=== PATIENT | female | born 1965 | race Caucasian/White ===

== ENCOUNTER 2018-02-18 23:33 | Emergency (ER) | payer OTHER ==
[~2018-02-18] VITALS: Ht 147.3 cm; Wt 79.7 kg
[2018-02-19 00:39] LABS: BASOPHILS # (AUTO) 0.03 x10^3/uL (0-0.1); BASOPHILS % (AUTO) 1 % (0-1); EOSINOPHILS # (AUTO) 0.05 x10^3/uL (0-0.4); EOSINOPHILS % (AUTO) 1 % (1-7); HCT (SEDRATE) 44.1 % (34.6-47.8); LYMPHOCYTES # (AUTO) 3.34 x10^3/uL (1-3.4); LYMPHOCYTES % (AUTO) 45 % (22-44); MD NO; MEAN CORPUSCULAR HEMOGLOBIN 29.9 pg (27.0-34.8); MEAN CORPUSCULAR HGB CONC 33.5 g/dL (32.4-35.8); MEAN CORPUSCULAR VOLUME 89.2 fL (80-100); MEAN PLATELET VOLUME 8.4 fL (7.4-10.4); MONOCYTES # (AUTO) 0.56 x10^3/uL (0.2-0.8); MONOCYTES % (AUTO) 8 % (2-9); NEUTROPHILS # (AUTO) 3.47 x10^3/uL (1.8-6.8); NEUTROPHILS % (AUTO) 47 % (42-75); PLATELET COUNT 202 x10^3/uL (130-400); RED BLOOD COUNT 4.94 x10^6/uL (3.82-5.3); RED CELL DISTRIBUTION WIDTH 12.6 % (9.6-15.2)
[2018-02-19 00:50] LABS: SEDIMENTATION RATE 0 mm/hr (0-20)
[2018-02-19 00:57] LABS: ALBUMIN 3.5 g/dL (3.4-5.0); ANION GAP 7 mmol/L (5-15); C-REACTIVE PROTEIN, QUANT 0.35 mg/dL (0.02-0.49); CALCIUM 8.9 mg/dL (8.5-10.1); CHLORIDE 109 mmol/L (98-107); CREATININE 0.82 mg/dL (0.55-1.02)
[2018-02-19] MEDS ORDERED: KETOROLAC 30 MG/1 ML IM ONE (02:00)
[2018-02-19] MEDS ORDERED: METHOCARBAMOL 750 MG TABLET PO ONE (02:00)
[2018-02-19] MEDS ORDERED: KETOROLAC 30 MG/1 ML ONE (02:06)
[2018-02-19] MEDS ORDERED: METHOCARBAMOL 750 MG TABLET ONE (02:06)
[2018-02-19 02:16] VITALS: BP 131/82
== END 2018-02-19 02:17 | disposition home or self-care (01) ==
LOC: ED 23:59
DX: T50.A95A Adverse effect of other bacterial vaccines, initial encounter (principal); M54.2 Cervicalgia; M79.1 Myalgia; Z88.6 Allergy status to analgesic agent; Z88.5 Allergy status to narcotic agent; Z88.8 Allergy status to other drugs, medicaments and biological substances; Y92.89 Other specified places as the place of occurrence of the external cause
CPT/HCPCS: 36415; 80048; 82040; 85025; 85651; 86140; 96372; 99284; J1885

== ENCOUNTER → 2018-02-26 | Outpatient (CLI) | payer OTHER | END | disposition home or self-care (01) | LOC: CFH 14:36 | PROVIDERS: ATTEND Internal Medicine | DX: Z13.820 Encounter for screening for osteoporosis (principal); M81.0 Age-related osteoporosis without current pathological fracture; Z90.710 Acquired absence of both cervix and uterus | CPT/HCPCS: 77080 ==

== ENCOUNTER → 2018-03-06 | Outpatient (CLI) | payer OTHER ==
[2018-03-06 07:22] LABS: BASOPHILS # (AUTO) 0.03 x10^3/uL (0-0.1); BASOPHILS % (AUTO) 0 % (0-1); EOSINOPHILS # (AUTO) 0.05 x10^3/uL (0-0.4); EOSINOPHILS % (AUTO) 1 % (1-7); LYMPHOCYTES # (AUTO) 3.35 x10^3/uL (1-3.4); LYMPHOCYTES % (AUTO) 45 % (22-44); MD NO; MEAN CORPUSCULAR HEMOGLOBIN 29.7 pg (27.0-34.8); MEAN CORPUSCULAR HGB CONC 33.6 g/dL (32.4-35.8); MEAN CORPUSCULAR VOLUME 88.3 fL (80-100); MEAN PLATELET VOLUME 8.4 fL (7.4-10.4); MONOCYTES # (AUTO) 0.46 x10^3/uL (0.2-0.8); MONOCYTES % (AUTO) 6 % (2-9); NEUTROPHILS # (AUTO) 3.53 x10^3/uL (1.8-6.8); NEUTROPHILS % (AUTO) 48 % (42-75); PLATELET COUNT 228 x10^3/uL (130-400); RED BLOOD COUNT 4.63 x10^6/uL (3.82-5.3); RED CELL DISTRIBUTION WIDTH 13.3 % (9.6-15.2)
[2018-03-06 07:32] LABS: ALANINE AMINOTRANSFERASE 17 U/L (12-78); ALBUMIN 3.6 g/dL (3.4-5.0); ANION GAP 7 mmol/L (5-15); CALCIUM 9.1 mg/dL (8.5-10.1); CHLORIDE 107 mmol/L (98-107)
[2018-03-06 07:40] LABS: ALKALINE PHOSPHATASE 48 U/L (45-117); BILIRUBIN,TOTAL 0.2 mg/dL (0.2-1.0); CHOL/HDL RATIO 2.5; CHOLESTEROL, TOTAL 192 mg/dL (140-239); HDL CHOL % 40 % (28-40); HDL CHOLESTEROL (DIRECT) 77 mg/dL (40-60); LDL CHOLESTEROL,CALCULATED 96 mg/dL (54-169); LDL/HDL RATIO 1.2 (0.5-3.0); TOTAL PROTEIN 7.4 g/dL (6.4-8.2); TRIGLYCERIDES 94 mg/dL (50-200); VLDL CHOLESTEROL 19 mg/dL (0-25)
== END ==
LOC: LAB 07:04
PROVIDERS: ATTEND Internal Medicine Cardiovascular Disease
DX: E03.9 Hypothyroidism, unspecified (principal); E66.9 Obesity, unspecified; E78.5 Hyperlipidemia, unspecified; E78.2 Mixed hyperlipidemia; F41.9 Anxiety disorder, unspecified; F32.0 Major depressive disorder, single episode, mild
CPT/HCPCS: 36415; 80053; 80061; 80164; 82306; 84443; 85025

== ENCOUNTER → 2018-03-12 | Outpatient (CLI) | payer OTHER | END | disposition home or self-care (01) | LOC: LAB 07:21 | PROVIDERS: ATTEND Internal Medicine Cardiovascular Disease | DX: F41.9 Anxiety disorder, unspecified (principal); G25.0 Essential tremor; G40.909 Epilepsy, unspecified, not intractable, without status epilepticus; R55 Syncope and collapse | CPT/HCPCS: 36415; 80164 ==

== ENCOUNTER → 2018-03-20 | Outpatient (CLI) | payer OTHER ==
[2018-03-20 08:05] LABS: FOLATE LEVEL 19.2 ng/mL (3.1-17.5)
== END | disposition home or self-care (01) ==
LOC: LAB 07:16
PROVIDERS: ATTEND Psychiatry & Neurology Neurology
DX: E53.9 Vitamin B deficiency, unspecified (principal); Z51.81 Encounter for therapeutic drug level monitoring
CPT/HCPCS: 36415; 80164; 82607; 82746

== ENCOUNTER → 2018-04-30 | Outpatient (CLI) | payer OTHER | END | disposition home or self-care (01) | LOC: CFH 13:12 | PROVIDERS: ATTEND Internal Medicine | DX: R92.8 Other abnormal and inconclusive findings on diagnostic imaging of breast (principal); N64.4 Mastodynia; Z96.9 Presence of functional implant, unspecified | CPT/HCPCS: 77066 ==

== ENCOUNTER 2018-06-18 16:05 | Emergency (ER) | payer OTHER ==
[~2018-06-18] VITALS: Ht 147.3 cm; Wt 83.1 kg
[2018-06-18 16:12] VITALS: BP 133/84
[2018-06-18] MEDS ORDERED: SODIUM CHLORIDE FLUSH 10ML SYR IVF ONE (16:30)
[2018-06-18 16:36] LABS: BASOPHILS # (AUTO) 0.04 x10^3/uL (0-0.1); BASOPHILS % (AUTO) 1 % (0-1); EOSINOPHILS # (AUTO) 0.02 x10^3/uL (0-0.4); EOSINOPHILS % (AUTO) 0 % (1-7); LYMPHOCYTES # (AUTO) 3.25 x10^3/uL (1-3.4); LYMPHOCYTES % (AUTO) 37 % (22-44); MD NO; MEAN CORPUSCULAR HEMOGLOBIN 28.7 pg (27.0-34.8); MEAN CORPUSCULAR HGB CONC 33.4 g/dL (32.4-35.8); MEAN CORPUSCULAR VOLUME 86.1 fL (80-100); MEAN PLATELET VOLUME 8.1 fL (7.4-10.4); MONOCYTES # (AUTO) 0.44 x10^3/uL (0.2-0.8); MONOCYTES % (AUTO) 5 % (2-9); NEUTROPHILS # (AUTO) 5.03 x10^3/uL (1.8-6.8); NEUTROPHILS % (AUTO) 57 % (42-75); PLATELET COUNT 240 x10^3/uL (130-400); RED BLOOD COUNT 4.75 x10^6/uL (3.82-5.3); RED CELL DISTRIBUTION WIDTH 14.2 % (9.6-15.2)
[2018-06-18 16:50] LABS: ALANINE AMINOTRANSFERASE 21 U/L (12-78); ALBUMIN 3.8 g/dL (3.4-5.0); ANION GAP 9 mmol/L (5-15); CHLORIDE 105 mmol/L (98-107); CREATININE 0.82 mg/dL (0.55-1.02)
[2018-06-18 16:54] LABS: ALKALINE PHOSPHATASE 54 U/L (45-117); BILIRUBIN,TOTAL 0.3 mg/dL (0.2-1.0); TOTAL PROTEIN 7.9 g/dL (6.4-8.2); TROPONIN I < 0.015 ng/mL (0.000-0.045)
[2018-06-18] MEDS ORDERED: OMNIPAQUE 350 MG/ML, 100ML BOTTLE ONE (17:53)
== END 2018-06-18 18:50 | disposition home or self-care (01) ==
LOC: ED 18:15
DX: R07.89 Other chest pain (principal)
CPT/HCPCS: 36415; 71045; 71275; 80053; 84484; 85025; 93005; 99285; Q9967

== ENCOUNTER → 2018-07-10 | Outpatient (CLI) | payer OTHER | END | disposition home or self-care (01) | LOC: CFH 12:43 | PROVIDERS: ATTEND Internal Medicine Cardiovascular Disease | DX: Z48.812 Encounter for surgical aftercare following surgery on the circulatory system (principal); I10 Essential (primary) hypertension; E78.5 Hyperlipidemia, unspecified; I48.91 Unspecified atrial fibrillation; Z95.0 Presence of cardiac pacemaker | CPT/HCPCS: 93306 ==

== ENCOUNTER → 2018-07-17 | Outpatient (CLI) | payer OTHER ==
[2018-07-17 08:11] LABS: ALANINE AMINOTRANSFERASE 16 U/L (12-78); ALBUMIN 3.5 g/dL (3.4-5.0); ANION GAP 10 mmol/L (5-15); CALCIUM 9.7 mg/dL (8.5-10.1); CHLORIDE 107 mmol/L (98-107); CREATININE 0.76 mg/dL (0.55-1.02)
[2018-07-17 08:16] LABS: BASOPHILS # (AUTO) 0.02 x10^3/uL (0-0.1); BASOPHILS % (AUTO) 0 % (0-1); EOSINOPHILS # (AUTO) 0.02 x10^3/uL (0-0.4); EOSINOPHILS % (AUTO) 0 % (1-7); LYMPHOCYTES # (AUTO) 2.88 x10^3/uL (1-3.4); LYMPHOCYTES % (AUTO) 39 % (22-44); MD NO; MEAN CORPUSCULAR HEMOGLOBIN 29.4 pg (27.0-34.8); MEAN CORPUSCULAR HGB CONC 33.7 g/dL (32.4-35.8); MEAN CORPUSCULAR VOLUME 87.3 fL (80-100); MEAN PLATELET VOLUME 8.2 fL (7.4-10.4); MONOCYTES # (AUTO) 0.43 x10^3/uL (0.2-0.8); MONOCYTES % (AUTO) 6 % (2-9); NEUTROPHILS # (AUTO) 4.04 x10^3/uL (1.8-6.8); NEUTROPHILS % (AUTO) 55 % (42-75); PLATELET COUNT 228 x10^3/uL (130-400); RED BLOOD COUNT 4.78 x10^6/uL (3.82-5.3); RED CELL DISTRIBUTION WIDTH 14.3 % (9.6-15.2)
[2018-07-17 08:21] LABS: ALKALINE PHOSPHATASE 53 U/L (45-117); BILIRUBIN,TOTAL 0.2 mg/dL (0.2-1.0); TOTAL PROTEIN 7.8 g/dL (6.4-8.2)
== END | disposition home or self-care (01) ==
LOC: LAB 07:35
PROVIDERS: ATTEND Internal Medicine
DX: E55.9 Vitamin D deficiency, unspecified (principal); E03.9 Hypothyroidism, unspecified
CPT/HCPCS: 36415; 80053; 80164; 82306; 84443; 85025

== ENCOUNTER → 2018-07-29 | Outpatient (CLI) | payer OTHER | END | disposition home or self-care (01) | LOC: LAB 07:37 | PROVIDERS: ATTEND Psychiatry & Neurology Neurology | DX: Z51.81 Encounter for therapeutic drug level monitoring (principal) | CPT/HCPCS: 36415; 80164 ==

== ENCOUNTER → 2018-11-20 | Outpatient (CLI) | payer OTHER ==
[2018-11-20 13:09] LABS: BASOPHILS # (AUTO) 0.03 x10^3/uL (0-0.1); BASOPHILS % (AUTO) 0 % (0-1); EOSINOPHILS # (AUTO) 0.02 x10^3/uL (0-0.4); EOSINOPHILS % (AUTO) 0 % (1-7); LYMPHOCYTES # (AUTO) 2.52 x10^3/uL (1-3.4); LYMPHOCYTES % (AUTO) 34 % (22-44); MD NO; MEAN CORPUSCULAR HEMOGLOBIN 29.1 pg (27.0-34.8); MEAN CORPUSCULAR HGB CONC 33.4 g/dL (32.4-35.8); MEAN CORPUSCULAR VOLUME 87.1 fL (80-100); MEAN PLATELET VOLUME 8.1 fL (7.4-10.4); MONOCYTES # (AUTO) 0.43 x10^3/uL (0.2-0.8); MONOCYTES % (AUTO) 6 % (2-9); NEUTROPHILS # (AUTO) 4.32 x10^3/uL (1.8-6.8); NEUTROPHILS % (AUTO) 59 % (42-75); PLATELET COUNT 252 x10^3/uL (130-400); RED CELL DISTRIBUTION WIDTH 14.6 % (9.6-15.2)
[2018-11-20 13:59] LABS: ALBUMIN 3.7 g/dL (3.4-5.0); ANION GAP 6 mmol/L (5-15); CALCIUM 9.2 mg/dL (8.5-10.1); CHLORIDE 107 mmol/L (98-107)
[2018-11-20 14:24] LABS: ALANINE AMINOTRANSFERASE 19 U/L (12-78); ALKALINE PHOSPHATASE 56 U/L (45-117); BILIRUBIN,TOTAL 0.2 mg/dL (0.2-1.0); CREATININE 0.78 mg/dL (0.55-1.02); TOTAL PROTEIN 7.6 g/dL (6.4-8.2)
[2018-11-20 14:29] LABS: FOLATE LEVEL > 20.0 ng/mL (3.1-17.5)
== END | disposition home or self-care (01) ==
LOC: RAD 12:41
PROVIDERS: ATTEND Internal Medicine
DX: S13.140A Subluxation of C3/C4 cervical vertebrae, initial encounter (principal); J98.4 Other disorders of lung; M50.320 Other cervical disc degeneration, mid-cervical region, unspecified level; M48.02 Spinal stenosis, cervical region; X58.XXXA Exposure to other specified factors, initial encounter; Y93.89 Activity, other specified; Y92.89 Other specified places as the place of occurrence of the external cause; Y99.8 Other external cause status
CPT/HCPCS: 36415; 71046; 72050; 80053; 80164; 82306; 82607; 82746; 83735; 83880; 84443; 85025

== ENCOUNTER 2018-12-31 07:38 | Emergency (ER) | payer OTHER ==
[~2018-12-31] VITALS: Ht 147.3 cm; Wt 84.0 kg
[2018-12-31] MEDS ORDERED: METHOCARBAMOL 1,000 MG in DEXTROSE 5% 100 ML IV ONE (08:00)
[2018-12-31] MEDS ORDERED: KETOROLAC 30 MG/1 ML IVPush ONE (08:00)
[2018-12-31] MEDS ORDERED: methylPREDNISolone SOD SUCC 40 MG/ML IV ONE (08:00)
[2018-12-31] MEDS ORDERED: methylPREDNISolone SOD SUCC 125 MG/2 ML ONE (08:17)
[2018-12-31] MEDS ORDERED: KETOROLAC 30 MG/1 ML ONE (08:18)
[2018-12-31] MEDS ORDERED: DIVA250T14 PO (08:46)
[2018-12-31] MEDS ORDERED: ESTR0.5T PO (08:46)
[2018-12-31] MEDS ORDERED: IBUP-1222 PO (08:46)
[2018-12-31] MEDS ORDERED: LEVO25TA2 PO (08:46)
[2018-12-31] MEDS ORDERED: b12 (08:46)
[2018-12-31] MEDS ORDERED: CYAN1TAB29 PO (08:46)
[2018-12-31] MEDS ORDERED: ACET325T14 PO (08:46)
[2018-12-31] MEDS ORDERED: CHOL3000 PO (08:46)
[2018-12-31] MEDS ORDERED: LIDOCAINE-MPF 1%, 5ML ONE (09:34)
[2018-12-31] MEDS ORDERED: HYDROmorphone 1 MG/ML, 1ML ONE (09:41)
--- NOTE | 2018-12-31 09:54 | NUR ---
PT MEDICATED WITH 1MG DIALUDID IVP. PT TO CT/MYELOGRAM AT THIS TIME.
[2018-12-31] MEDS ORDERED: HYDROmorphone 2 MG/ML, 1ML IVPush PRN (10:00)
[2018-12-31 12:10] VITALS: BP 139/80
--- NOTE | 2018-12-31 12:16 | NUR ---
Patient/Caregiver given discharge instructions and they have confirmed that they understand the instructions. Patient ambulatory with steady gait.
== END 2018-12-31 12:12 | disposition home or self-care (01) ==
LOC: ED 10:11
DX: M54.12 Radiculopathy, cervical region (principal); Z95.0 Presence of cardiac pacemaker
CPT/HCPCS: 62284; 72126; 93005; 96365; 96375; 99284; J1170; J1885; J2800; J2920

== ENCOUNTER 2019-03-06 08:22 | Emergency (ER) | payer OTHER ==
[~2019-03-06] VITALS: Ht 147.3 cm; Wt 87.1 kg
[~2019-03-06 08:22] MED LIST: ACET325T14 PO; CHOL3000 PO; CYAN1TAB29 PO; DIVA250T14 PO; ESTR0.5T PO; IBUP-1222 PO; LEVO25TA2 PO; b12
--- NOTE | 2019-03-06 08:36 | NUR ---
PT STATES "I AM SHORT OF BREATH, I GET CHEST PAIN FOR A FEW SECONDS OCCASIONALLY, AND I FEEL LIKE MY PACEMAKER IS PACING ME. I SHORT OF BREATH ALL THE TIME, BUT AT NIGHT IT IS MUCH WORSE. WHEN I LAY DOWN, I FEEL LIKE I CAN'T BREATH, SO I HAVE TO STAY SITTING UP". PT REPORTS HX OF PACEMAKER (FOR VASOVAGAL), SHE ALSO HAS A DEEP BRAIN STIMULATOR FOR TREMORS. SHE IS HYPOTHYROID, AND HAS A SEIZURE DISORDER. LAST SEIZURE WAS IN 2007. PT REPORTS "A HEAVY FEELING IN CHEST. HER SOB AND CHEST PAIN HAS BEEN GOING ON SINCE Fri.
[2019-03-06] MEDS ORDERED: ONDANSETRON 2MG/ML, 2ML IVPush ONE (09:00)
[2019-03-06] MEDS ORDERED: HYDROmorphone 2 MG/ML, 1ML IV ONE (09:00)
[2019-03-06] MEDS ORDERED: SODIUM CHLORIDE FLUSH 10ML SYR IVF ONE (09:00)
[2019-03-06] MEDS ORDERED: ASPIRIN 81 MG TABLET CHEW PO ONE (09:00)
[2019-03-06] MEDS ORDERED: MELO15TA24 PO (09:11)
[2019-03-06] MEDS ORDERED: ONDANSETRON 2MG/ML, 2ML ONE (09:23)
[2019-03-06 09:24] LABS: BASOPHILS # (AUTO) 0.03 x10^3/uL (0-0.1); BASOPHILS % (AUTO) 0 % (0-1); EOSINOPHILS # (AUTO) 0.03 x10^3/uL (0-0.4); EOSINOPHILS % (AUTO) 0 % (1-7); LYMPHOCYTES # (AUTO) 3.06 x10^3/uL (1-3.4); LYMPHOCYTES % (AUTO) 34 % (22-44); MD NO; MEAN CORPUSCULAR HEMOGLOBIN 28.4 pg (27.0-34.8); MEAN CORPUSCULAR HGB CONC 31.6 g/dL (32.4-35.8); MEAN CORPUSCULAR VOLUME 89.9 fL (80-100); MEAN PLATELET VOLUME 8.2 fL (7.4-10.4); MONOCYTES # (AUTO) 0.44 x10^3/uL (0.2-0.8); MONOCYTES % (AUTO) 5 % (2-9); NEUTROPHILS # (AUTO) 5.42 x10^3/uL (1.8-6.8); NEUTROPHILS % (AUTO) 60 % (42-75); PLATELET COUNT 244 x10^3/uL (130-400); RED BLOOD COUNT 4.76 x10^6/uL (3.82-5.3); RED CELL DISTRIBUTION WIDTH 14.6 % (9.6-15.2)
[2019-03-06] MEDS ORDERED: HYDROmorphone 2 MG/ML, 1ML ONE (09:24)
[2019-03-06] MEDS ORDERED: ASPIRIN 325 MG TABLET ONE (09:25)
[2019-03-06 09:30] LABS: ALBUMIN 3.6 g/dL (3.4-5.0); ANION GAP 6 mmol/L (5-15); CALCIUM 9.5 mg/dL (8.5-10.1); CHLORIDE 108 mmol/L (98-107); CREATININE 0.75 mg/dL (0.55-1.02)
[2019-03-06] MEDS ORDERED: MAALOX/HYOSCYAMINE/LIDOCAINE 45 ML BTL PO ONE (09:30)
--- NOTE | 2019-03-06 09:30 | NUR ---
I GOT PT UP TO BEDSIDE COMMODE, SHE WAS STEADY AND TRANSFERRED WITH NO DIFFICULTY. PT REPORTS THAT "I DO NOT FEEL DIZZY". VS STABLE.
[2019-03-06 09:34] LABS: TROPONIN I < 0.015 ng/mL (0.000-0.045)
[2019-03-06] MEDS ORDERED: ASPIRIN 81 MG TABLET CHEW ONE (09:38)
[2019-03-06] MEDS ORDERED: MAALOX/HYOSCYAMINE/LIDOCAINE 45 ML BTL ONE (09:39)
[2019-03-06 09:43] VITALS: BP 149/70
--- NOTE | 2019-03-06 09:44 | NUR ---
PT SITTING ON EDGE OF BED, DANGLING FEET. PT STATES, "IT JUST FEELS BETTER WHEN I SIT UP". PT GIVEN ASA, ZOFRAN AND DILAUDID - TOLERATING MEDICATION. PT OXYGEN SAT DECREASED TO 80'S, PT PUT ON 2 L OF OXYGEN. PT OX SAT IS NOW 99 AND HOLDING. PT DENIES ANY ADDITIONAL NEEDS AT THIS TIME.
--- NOTE | 2019-03-06 11:09 | NUR ---
NETEZZA DEVELOPER: Patient/Caregiver given discharge instructions and they have confirmed that they understand the instructions. Patient ambulatory with steady gait.
== END 2019-03-06 11:10 | disposition home or self-care (01) ==
LOC: ED 09:19
DX: R07.89 Other chest pain (principal); B34.9 Viral infection, unspecified; Z95.0 Presence of cardiac pacemaker; Z86.69 Personal history of other diseases of the nervous system and sense organs; E03.9 Hypothyroidism, unspecified; Z88.6 Allergy status to analgesic agent; Z88.2 Allergy status to sulfonamides; Z88.5 Allergy status to narcotic agent
CPT/HCPCS: 36415; 71045; 80048; 82040; 83880; 84484; 85025; 93005; 96374; 96375; 99284; J1170; J2405

== ENCOUNTER 2019-04-27 07:34 | Outpatient (CLI) | payer OTHER ==
[~2019-04-27 07:34] MED LIST changes: +MELO15TA24 PO
[2019-04-27 07:59] LABS: ANION GAP 10 mmol/L (5-15); CALCIUM 9.7 mg/dL (8.5-10.1); CHLORIDE 106 mmol/L (98-107); CREATININE 0.91 mg/dL (0.55-1.02)
[2019-04-27 08:06] LABS: CHOL/HDL RATIO 3.4
[2019-04-27 08:07] LABS: LDL/HDL RATIO 1.8 (0.5-3.0); THYROID STIMULATING HORMONE 6.53 mIU/L (0.358-3.740)
== END 2019-04-27 23:59 | disposition home or self-care (01) ==
LOC: LAB 07:34
PROVIDERS: ATTEND Psychiatry & Neurology Neurology
DX: E03.9 Hypothyroidism, unspecified (principal); E78.5 Hyperlipidemia, unspecified
CPT/HCPCS: 36415; 80048; 80061; 84443

== ENCOUNTER 2019-05-05 07:28 | Outpatient (CLI) | payer OTHER | END 2019-05-05 23:59 | disposition home or self-care (01) | LOC: LAB 07:28 | PROVIDERS: ATTEND Nurse Practitioner | DX: E55.9 Vitamin D deficiency, unspecified (principal); R53.83 Other fatigue | CPT/HCPCS: 36415; 80053; 82306; 83970; 85025 ==

== ENCOUNTER 2019-05-07 14:37 | Outpatient (CLI) | payer OTHER | END 2019-05-07 23:59 | disposition home or self-care (01) | LOC: CFH 14:37 | PROVIDERS: ATTEND Nurse Practitioner | DX: M54.2 Cervicalgia (principal); E03.9 Hypothyroidism, unspecified | CPT/HCPCS: 76536 ==

== ENCOUNTER → 2019-09-27 | Outpatient (CLI) | payer OTHER | END | disposition home or self-care (01) | LOC: CFH 10:26 | PROVIDERS: ATTEND Physician Assistant Surgical | DX: G91.2 (Idiopathic) normal pressure hydrocephalus (principal) | CPT/HCPCS: 70450 ==

== ENCOUNTER 2019-10-20 08:45 | Outpatient (CLI) | payer OTHER ==
[2019-10-20] MEDS ORDERED: ESTR0.5T PO (09:15)
[2019-10-20] MEDS ORDERED: LEVO50TA5 PO (09:15)
[2019-10-20 10:01] LABS: BASOPHILS # (AUTO) 0.03 x10^3/uL (0-0.1); BASOPHILS % (AUTO) 0 % (0-1); EOSINOPHILS # (AUTO) 0.04 x10^3/uL (0-0.4); EOSINOPHILS % (AUTO) 1 % (1-7); LYMPHOCYTES # (AUTO) 3.17 x10^3/uL (1-3.4); LYMPHOCYTES % (AUTO) 40 % (22-44); MD NO; MEAN CORPUSCULAR HEMOGLOBIN 28.9 pg (27.0-34.8); MEAN CORPUSCULAR HGB CONC 32.8 g/dL (32.4-35.8); MEAN CORPUSCULAR VOLUME 88.1 fL (80-100); MEAN PLATELET VOLUME 7.8 fL (7.4-10.4); MONOCYTES % (AUTO) 5 % (2-9); NEUTROPHILS # (AUTO) 4.35 x10^3/uL (1.8-6.8); NEUTROPHILS % (AUTO) 54 % (42-75); PLATELET COUNT 267 x10^3/uL (130-400); RED BLOOD COUNT 5.13 x10^6/uL (3.82-5.3); RED CELL DISTRIBUTION WIDTH 13.8 % (9.6-15.2)
[2019-10-20 10:05] LABS: MICROSCOPIC INDICATED
[2019-10-20 10:08] LABS: ANION GAP 6 mmol/L (5-15); CALCIUM 9.5 mg/dL (8.5-10.1); CHLORIDE 106 mmol/L (98-107); CREATININE 0.81 mg/dL (0.55-1.02); INTERNATIONAL NORMALIZED RATIO 0.97 (0.93-1.1); PROTHROMBIN TIME 10.2 Seconds (9.6-11.5)
[2019-10-20 10:26] LABS: CULTURE INDICATED? YES
== END 2019-10-20 23:59 | disposition home or self-care (01) ==
LOC: STAR 08:45
PROVIDERS: ATTEND Neurological Surgery
DX: G25.0 Essential tremor (principal)
CPT/HCPCS: 36415; 80048; 81001; 85025; 85610; 85730; 87086; 93005

== ENCOUNTER 2019-10-26 06:11 | Day surgery (SDC) | payer OTHER ==
[~2019-10-26] VITALS: Ht 149.9 cm; Wt 83.0 kg
[~2019-10-26 06:11] MED LIST changes: +LEVO50TA5 PO
[2019-10-26] MEDS ORDERED: LACTATED RINGERS 1,000 ML IV SCH (06:36)
[2019-10-26 06:48] VITALS: BP 127/87
[2019-10-26] MEDS ORDERED: FENTANYL PF 100 MCG/2ML ONE (09:02)
[2019-10-26] MEDS ORDERED: BUPIVACAINE/PF 0.5% ONE (09:26)
[2019-10-26] MEDS ORDERED: BACITRACIN OINT 500U/GM, 15 GM ONE (09:26)
[2019-10-26] MEDS ORDERED: EPINEPHRINE 1 MG/ML, 1ML ONE (09:26)
[2019-10-26] MEDS ORDERED: LIDOCAINE 1%-EPI 1:100K, 20ML ONE (09:26)
[2019-10-26] MEDS ORDERED: ONDANSETRON 2MG/ML, 2ML ONE (10:10)
[2019-10-26] MEDS ORDERED: PROPOFOL 10 MG/ML, 20ML ONE (10:10)
[2019-10-26] MEDS ORDERED: CEFAZOLIN 1,000 MG ONE (10:10)
[2019-10-26] MEDS ORDERED: DIVALPROEX 250 MG TAB.ER.24H PO SCH (10:30)
[2019-10-26] MEDS ORDERED: ONDANSETRON 2MG/ML, 2ML IV PRN (10:30)
[2019-10-26] MEDS ORDERED: ACETAMINOPHEN 325 MG TABLET PO PRN (10:30)
[2019-10-26] MEDS ORDERED: FENTANYL PF 100 MCG/2ML IV PRN (10:30)
[2019-10-26] MEDS ORDERED: ACETAMINOPHEN 325 MG TABLET ONE (11:11)
[2019-10-26] MEDS ORDERED: IBUPROFEN 800 MG TABLET PO ONE (11:30)
[2019-10-27] MEDS ORDERED: LEVOTHYROXINE 50 MCG TABLET PO SCH (09:00)
[2019-10-27] MEDS ORDERED: ESTRADIOL 0.5 MG TABLET PO SCH (09:00)
== END 2019-10-26 13:13 | disposition home or self-care (01) ==
LOC: OUT 06:11
PROVIDERS: ATTEND Neurological Surgery
DX: Z46.2 Encounter for fitting and adjustment of other devices related to nervous system and special senses (principal); G25.0 Essential tremor; G91.2 (Idiopathic) normal pressure hydrocephalus; G40.909 Epilepsy, unspecified, not intractable, without status epilepticus; E03.9 Hypothyroidism, unspecified; G43.909 Migraine, unspecified, not intractable, without status migrainosus; K21.9 Gastro-esophageal reflux disease without esophagitis; Z79.890 Hormone replacement therapy; Z79.899 Other long term (current) drug therapy; Z88.5 Allergy status to narcotic agent; Z88.8 Allergy status to other drugs, medicaments and biological substances; Z90.710 Acquired absence of both cervix and uterus; Z98.890 Other specified postprocedural states; Z82.3 Family history of stroke; Z83.3 Family history of diabetes mellitus; Z82.61 Family history of arthritis
CPT/HCPCS: 36415; 61886; 86850; 86900; C1767; J0690; J2405; J2704; J3010; J7120; J0171; J3490

== ENCOUNTER 2019-12-02 13:03 | Inpatient (IN) | payer OTHER ==
[2019-11-30 10:59] LABS: BASOPHILS # (AUTO) 0.04 x10^3/uL (0-0.1); BASOPHILS % (AUTO) 1 % (0-1); EOSINOPHILS # (AUTO) 0.06 x10^3/uL (0-0.4); EOSINOPHILS % (AUTO) 1 % (1-7); LYMPHOCYTES # (AUTO) 3.24 x10^3/uL (1-3.4); LYMPHOCYTES % (AUTO) 38 % (22-44); MD NO; MEAN CORPUSCULAR HEMOGLOBIN 29.3 pg (27.0-34.8); MEAN CORPUSCULAR HGB CONC 33.3 g/dL (32.4-35.8); MEAN CORPUSCULAR VOLUME 88.1 fL (80-100); MEAN PLATELET VOLUME 8.5 fL (7.4-10.4); MONOCYTES # (AUTO) 0.48 x10^3/uL (0.2-0.8); MONOCYTES % (AUTO) 6 % (2-9); NEUTROPHILS # (AUTO) 4.63 x10^3/uL (1.8-6.8); NEUTROPHILS % (AUTO) 55 % (42-75); PLATELET COUNT 236 x10^3/uL (130-400); RED BLOOD COUNT 4.82 x10^6/uL (3.82-5.3); RED CELL DISTRIBUTION WIDTH 14.4 % (9.6-15.2)
[2019-11-30 14:05] LABS: ANION GAP 4 mmol/L (5-15); CALCIUM 9.4 mg/dL (8.5-10.1); CHLORIDE 106 mmol/L (98-107); CREATININE 0.73 mg/dL (0.55-1.02)
[~2019-12-02] VITALS: Ht 147.3 cm; Wt 86.0 kg
[~2019-12-02 13:03] MED LIST changes: +ACET650S21 PO; +BACITRACIN 50,000 UNIT ONE; +BACITRACIN OINT 500U/GM, 15 GM ONE; +BUPIVACAINE/PF 0.5% ONE; +EPINEPHRINE 1 MG/ML, 1ML ONE; +THROMBIN 5,000 UNIT VIAL TP ONE
[2019-12-02 13:32] VITALS: BP 114/80
[2019-12-02] MEDS ORDERED: LACTATED RINGERS 1,000 ML IV SCH (13:38)
[2019-12-02] MEDS ORDERED: FENTANYL PF 250 MCG/5ML ONE (16:09)
[2019-12-02] MEDS ORDERED: MIDAZOLAM 1 MG/ML, 2ML ONE (16:09)
[2019-12-02] MEDS ORDERED: LIDOCAINE PF 2%, 5ML ONE (17:06)
[2019-12-02] MEDS ORDERED: POTASSIUM CHLORIDE 40 MEQ in SODIUM CHLORIDE 0.9% 1,000 ML IV SCH (17:12)
[2019-12-02] MEDS ORDERED: LABETALOL 5MG/ML, 20ML IV PRN (17:30)
[2019-12-02] MEDS ORDERED: morphine SULFATE 10 MG/ML, 1ML IV PRN (17:30)
[2019-12-02] MEDS ORDERED: OXYcodone/APAP 5/325MG TABLET PO PRN (17:30)
[2019-12-02] MEDS ORDERED: ONDANSETRON 2MG/ML, 2ML IV PRN ×2 (17:30→18:00)
[2019-12-02] MEDS ORDERED: LIDOCAINE 1%-EPI 1:100K, 20ML ONE (17:32)
[2019-12-02] MEDS ORDERED: FENTANYL PF 100 MCG/2ML IV PRN (18:00)
[2019-12-02] MEDS ORDERED: PROMETHAZINE 25 MG SUPP PR PRN (18:00)
[2019-12-02] MEDS ORDERED: PROMETHAZINE 25 MG/ML, 1ML IV PRN (18:00)
[2019-12-02] MEDS ORDERED: ACETAMINOPHEN 325 MG TABLET PO PRN (18:00)
[2019-12-02] MEDS ORDERED: HYDROmorphone 2 MG/ML, 1ML IVPush PRN (18:00)
[2019-12-02] MEDS ORDERED: ONDANSETRON ODT 8 MG PO PRN (18:00)
[2019-12-02] MEDS ORDERED: OXYcodone 5 MG/5 ML ORAL.SOL UDC PO PRN (18:00)
[2019-12-02] MEDS ORDERED: GLYCOPYRROLATE 0.2MG/1ML, 5ML ONE (18:44)
[2019-12-02] MEDS ORDERED: ROCURONIUM 10MG/ML,5ML ONE (18:44)
[2019-12-02] MEDS ORDERED: SUCCINYLCHOLINE 20 MG/ML, 10ML ONE (18:44)
[2019-12-02] MEDS ORDERED: CEFAZOLIN 1,000 MG ONE (18:44)
[2019-12-02] MEDS ORDERED: DEXAMETHASONE 4 MG/ML, 1ML ONE (18:44)
[2019-12-02] MEDS ORDERED: ONDANSETRON 2MG/ML, 2ML ONE (18:44)
[2019-12-02] MEDS ORDERED: SUGAMMADEX 200 MG/2 ML IVPush ONE (18:44)
[2019-12-02] MEDS ORDERED: NEOSTIGMINE 1 MG/ML, 10ML ONE (18:44)
[2019-12-02] MEDS ORDERED: PROPOFOL 10 MG/ML, 20ML ONE (18:44)
[2019-12-02] MEDS ORDERED: HYDROmorphone 1 MG/ML, 1ML INJ ONE (19:42)
[2019-12-02] MEDS ORDERED: FENTANYL PF 100 MCG/2ML ONE (19:42)
[2019-12-02 20:37] VITALS: BP 143/91
[2019-12-02] MEDS ORDERED: DIVALPROEX 250 MG TAB.ER.24H PO SCH (21:00)
[2019-12-02] MEDS: ACETAMINOPHEN 325 MG TABLET PO PRN (23:30)
[2019-12-02] MEDS: HYDROmorphone 2 MG/ML, 1ML IV PRN (23:40)
[2019-12-03 01:07] VITALS: BP 122/75
[2019-12-03] MEDS: HYDROmorphone 2 MG/ML, 1ML IV PRN ×2 (02:58→06:24)
[2019-12-03] MEDS: CEFAZOLIN PMX 1GM/50ML 50 ML IVPB SCH ×2 (02:59→11:04)
[2019-12-03 03:42] VITALS: BP 128/81
[2019-12-03] MEDS: ACETAMINOPHEN 325 MG TABLET PO PRN (03:59)
[2019-12-03] MEDS ORDERED: LEVOTHYROXINE 50 MCG TABLET PO SCH (06:00)
[2019-12-03 07:26] VITALS: BP 116/77
[2019-12-03] MEDS ORDERED: IBUPROFEN 800 MG TABLET PO PRN (09:30)
[2019-12-03] MEDS ORDERED: KETOROLAC 30 MG/1 ML IVPush ONE (09:30)
[2019-12-03 10:59] VITALS: BP 104/62
[2019-12-03] MEDS: HYDROmorphone 2MG TABLET PO PRN ×2 (11:44→16:15)
[2019-12-03 13:36] VITALS: BP 97/66
[2019-12-03] MEDS ORDERED: HYDR2TAB29 PO (16:25)
== END 2019-12-03 16:47 | disposition home or self-care (01) | DRG 27 ==
LOC: ORIP 13:03 → EDSTATUS 16:30 → 4NE 20:22 → DCLOUNGE 12-03 16:39
PROVIDERS: ADMIT Neurological Surgery; ATTEND Neurological Surgery
PROC: 009 Central Nervous System and Cranial Nerves, Drainage (ICD-10-PCS; principal; 2019-12-02 16:30)
DX: G91.9 Hydrocephalus, unspecified (principal); I48.91 Unspecified atrial fibrillation; G43.909 Migraine, unspecified, not intractable, without status migrainosus; G40.909 Epilepsy, unspecified, not intractable, without status epilepticus; Z95.0 Presence of cardiac pacemaker; Z88.6 Allergy status to analgesic agent; K21.9 Gastro-esophageal reflux disease without esophagitis; Z88.8 Allergy status to other drugs, medicaments and biological substances; Z88.5 Allergy status to narcotic agent; M81.0 Age-related osteoporosis without current pathological fracture; Z83.3 Family history of diabetes mellitus; Z82.3 Family history of stroke; Z82.61 Family history of arthritis
CPT/HCPCS: 36415; S0020; 70450; 80048; 85025; 86850; 86900; C1729; G0378; J0171; J0690; J1100; J1170; J1885; J2250; J2405; J2704; J2710; J3010; J3480; J3490; C1727; C1894; J0330; J7030; J7120

== ENCOUNTER 2019-12-05 16:16 | Emergency (ER) | payer OTHER ==
[~2019-12-05] VITALS: Ht 147.3 cm; Wt 82.7 kg
[~2019-12-05 16:16] MED LIST changes: -BACITRACIN 50,000 UNIT ONE; -BACITRACIN OINT 500U/GM, 15 GM ONE; -BUPIVACAINE/PF 0.5% ONE; -EPINEPHRINE 1 MG/ML, 1ML ONE; +HYDR2TAB29 PO; -THROMBIN 5,000 UNIT VIAL TP ONE
--- NOTE | 2019-12-05 16:43 | NUR ---
PT REPORTS "LEFT VENTRICULAR SHUNT" PLACED FRIDAY ([employer]) FOR INCREASED PRESSURE IN HEAD. SINCE THEN PT REPORTS LEFT SIDED NECK TENDERNESS, RLQ ABDOMINAL TENDERNESS AND BILATERAL EAR PRESSURE. PT REPORTS SENSITIVITY TO SOUND. SURGICAL INCISIONS ON SCALP AND ABDOMEN APPEAR WELL HEALING, SOME BRUISING SURROUNDS ABDOMINAL INCISIONS. PT REPORTS STAYING IN BED AT HOME SINCE FRIDAY. PT HAS BEEN AVOIDING OPIOID USE FOR GI MOBILITY AND TO DECREASE STRAIN FROM BM. ERMD AT BEDSIDE FOR ASSESSMENT.
--- NOTE | 2019-12-05 16:48 | NUR ---
PT DENIES UNILATERAL DEFICITS, EQUAL FACIAL EXPRESSION BILATERALLY.
[2019-12-05] MEDS ORDERED: HYDROmorphone 1 MG/ML, 1ML INJ ONE (16:57)
--- NOTE | 2019-12-05 17:29 | NUR ---
ct notified that labs and medications completed for pt. [employer] dean to come get pt katya.
[2019-12-05] MEDS ORDERED: HYDROmorphone 1 MG/ML, 1ML INJ IM ONE (17:30)
--- NOTE | 2019-12-05 17:31 | NUR ---
HOB to level of comfort. Pt ambulated well to bathroom and back in bed. Side rails up, call light in reach. awaiting CT.
[2019-12-05 17:33] LABS: BASOPHILS # (AUTO) 0.03 x10^3/uL (0-0.1); BASOPHILS % (AUTO) 0 % (0-1); EOSINOPHILS # (AUTO) 0.04 x10^3/uL (0-0.4); EOSINOPHILS % (AUTO) 1 % (1-7); LYMPHOCYTES # (AUTO) 2.37 x10^3/uL (1-3.4); LYMPHOCYTES % (AUTO) 29 % (22-44); MD NO; MEAN CORPUSCULAR HEMOGLOBIN 29.3 pg (27.0-34.8); MEAN CORPUSCULAR HGB CONC 33.3 g/dL (32.4-35.8); MEAN CORPUSCULAR VOLUME 87.9 fL (80-100); MEAN PLATELET VOLUME 8.6 fL (7.4-10.4); MONOCYTES # (AUTO) 0.43 x10^3/uL (0.2-0.8); MONOCYTES % (AUTO) 5 % (2-9); NEUTROPHILS # (AUTO) 5.22 x10^3/uL (1.8-6.8); NEUTROPHILS % (AUTO) 65 % (42-75); PLATELET COUNT 215 x10^3/uL (130-400); RED BLOOD COUNT 4.76 x10^6/uL (3.82-5.3); RED CELL DISTRIBUTION WIDTH 14.3 % (9.6-15.2)
[2019-12-05 17:42] LABS: ANION GAP 8 mmol/L (5-15); CHLORIDE 108 mmol/L (98-107); CREATININE 0.82 mg/dL (0.55-1.02)
--- NOTE | 2019-12-05 18:14 | NUR ---
PT UP FOR RECHECK. PT LAYING ON SIDE IN BED, LIGHTS DIMMED AND DOOR CLOSED FOR LIGHT AND SOUND LOWERING FOR PT COMFORT.
--- NOTE | 2019-12-05 18:39 | NUR ---
Pt asleep in bed, respirations even and unlabored on RA. NAD noted at this time. Lights remain dimmed and door partially closed for pt comfort.
[2019-12-05 19:04] VITALS: BP 122/66
--- NOTE | 2019-12-05 19:06 | NUR ---
PT REPORTS PAIN DECREASED TO TOLERABLE LEVEL. HOB ELEVATED PER PT REQUEST. SIDE RAILS UP, CALL LIGHT IN REACH. AWAITING XRAY RESULTS.
--- NOTE | 2019-12-05 19:09 | NUR ---
PT CHART UP FOR RECHECK.
== END 2019-12-05 20:02 | disposition home or self-care (01) ==
LOC: ED 16:44
DX: R51 Headache (principal); M54.2 Cervicalgia; E03.9 Hypothyroidism, unspecified
CPT/HCPCS: 36415; 70450; 71045; 72040; 74018; 80048; 83735; 85025; 96372; 99285; J1170

== ENCOUNTER → 2020-03-02 | Outpatient (CLI) | payer OTHER | END | disposition home or self-care (01) | LOC: LAB 08:19 | PROVIDERS: ATTEND Internal Medicine | DX: G40.909 Epilepsy, unspecified, not intractable, without status epilepticus (principal); E03.9 Hypothyroidism, unspecified; E55.9 Vitamin D deficiency, unspecified; M81.0 Age-related osteoporosis without current pathological fracture | CPT/HCPCS: 36415; 80164; 82306; 84443 ==

== ENCOUNTER 2020-03-12 06:24 | Emergency (ER) | payer OTHER ==
[~2020-03-12] VITALS: Ht 147.3 cm; Wt 82.0 kg
--- NOTE | 2020-03-12 06:44 | NUR ---
PT REPORTS DIZZINESS X3 DAYS, ALSO NAUSEA THIS MORNING. PLACED ON VITAL SIGNS MONITORS. PT REPORTS HX OF HIGH INTRACRANIAL PRESSURE AND SHUNT PLACEMENT.
--- NOTE | 2020-03-12 06:52 | NUR ---
REPORT FROM GOLD RN, ASSUME CARE OF PT AT THIS TIME.
--- NOTE | 2020-03-12 07:09 | NUR ---
HEART MONITOR, PULSE OX, BP CUFF PLACED. PT PROVIDED ICE PACK FOR NECK (PER HER NORMAL AM ROUTINE FOR CHRONIC NECK PAIN) AND PILLOW. CALL LIGHT WITHIN REACH. AWAITING ORDERS.
--- NOTE | 2020-03-12 07:20 | NUR ---
PT TO CT.
[2020-03-12 08:18] LABS: BASOPHILS # (AUTO) 0.02 x10^3/uL (0-0.1); BASOPHILS % (AUTO) 0 % (0-1); EOSINOPHILS # (AUTO) 0.03 x10^3/uL (0-0.4); EOSINOPHILS % (AUTO) 0 % (1-7); LYMPHOCYTES % (AUTO) 34 % (22-44); MD NO; MEAN CORPUSCULAR HEMOGLOBIN 29.2 pg (27.0-34.8); MEAN CORPUSCULAR HGB CONC 32.6 g/dL (32.4-35.8); MEAN CORPUSCULAR VOLUME 89.6 fL (80-100); MEAN PLATELET VOLUME 8.1 fL (7.4-10.4); MONOCYTES # (AUTO) 0.47 x10^3/uL (0.2-0.8); MONOCYTES % (AUTO) 6 % (2-9); NEUTROPHILS # (AUTO) 4.81 x10^3/uL (1.8-6.8); NEUTROPHILS % (AUTO) 59 % (42-75); PLATELET COUNT 256 x10^3/uL (130-400); RED BLOOD COUNT 4.58 x10^6/uL (3.82-5.3)
[2020-03-12 08:30] LABS: ALANINE AMINOTRANSFERASE 17 U/L (12-78); ALBUMIN 3.5 g/dL (3.4-5.0); ANION GAP 6 mmol/L (5-15); CALCIUM 8.7 mg/dL (8.5-10.1); CHLORIDE 109 mmol/L (98-107); CREATININE 0.76 mg/dL (0.55-1.02)
[2020-03-12 08:34] LABS: ALKALINE PHOSPHATASE 59 U/L (45-117); BILIRUBIN,TOTAL 0.2 mg/dL (0.2-1.0); TOTAL PROTEIN 7.3 g/dL (6.4-8.2); TROPONIN I < 0.015 ng/mL (0.000-0.045)
--- NOTE | 2020-03-12 08:45 | NUR ---
PT UPDATED ON RESULTS AND ADD ON CAROTID US. PT ASSISTED UP TO BR. PT STILL DIZZY AND UNSTEADY ON FEET, REQUIRING ONE PERSON ASSIST. VSS/UPDATED IN COMPUTER.
[2020-03-12 09:16] VITALS: BP 119/77
--- NOTE | 2020-03-12 10:24 | NUR ---
CALL TO US TO DETERMINE ESTIMATED TIME FOR TEST.
--- NOTE | 2020-03-12 10:30 | NUR ---
US STATES ETA 1100. PT INFORMED. WARM BLANKET PROVIDED. PT UP AD RACHEL, GAIT STEADIER/LESS DIZZINESS AT THIS TIME.
--- NOTE | 2020-03-12 11:15 | NUR ---
US AT BS.
== END 2020-03-12 12:30 | disposition home or self-care (01) ==
LOC: ED 07:00
DX: R51 Headache (principal); R10.9 Unspecified abdominal pain; R42 Dizziness and giddiness; E03.9 Hypothyroidism, unspecified; G40.909 Epilepsy, unspecified, not intractable, without status epilepticus; R00.0 Tachycardia, unspecified
CPT/HCPCS: 36415; 70250; 70450; 71045; 72040; 74018; 80053; 84484; 85025; 93005; 93880; 99285

== ENCOUNTER 2020-04-03 17:59 | Emergency (ER) | payer OTHER ==
[~2020-04-03] VITALS: Ht 147.3 cm; Wt 80.0 kg
--- NOTE | 2020-04-03 19:18 | NUR ---
PT. TO ROOM FROM LOBBY.
[2020-04-03] MEDS ORDERED: SODIUM CHLORIDE FLUSH 10ML SYR IVF ONE (20:00)
[2020-04-03] MEDS ORDERED: ONDANSETRON 2MG/ML, 2ML IVPush ONE (20:00)
[2020-04-03] MEDS ORDERED: ONDANSETRON 2MG/ML, 2ML ONE (20:06)
[2020-04-03] MEDS ORDERED: HYDROmorphone 2 MG/ML, 1ML ONE (20:06)
--- NOTE | 2020-04-03 20:07 | NUR ---
PT AMBULATORY TO BATHROOM, STEADY GAIT WITH CANE.
--- NOTE | 2020-04-03 20:10 | NUR ---
LATE ENTRY: THIS PT IS COMING FROM HOME. SHE HAS MULTIPLE COMPLAINTS INCLUDING R JUGULAR CLOT, L VENTRICULAR SHUNT THAT SHE THINKS IS "PULLING TOO MUCH CSF" AND GIVING HER A PUGA AND UNSTEADY GAIT. SHE'S COMPLAINING OF RINGING IN HER EARS. VSS, NO SIGNS OF ACUTE DISTRESS, POSITIONED TO COMFORT. PT UPDATED ON POC, ALL QUESTIONS ANSWERED AT THIS TIME.
[2020-04-03 20:13] LABS: BASOPHILS # (AUTO) 0.06 x10^3/uL (0-0.1); BASOPHILS % (AUTO) 1 % (0-1); EOSINOPHILS # (AUTO) 0.03 x10^3/uL (0-0.4); EOSINOPHILS % (AUTO) 0 % (1-7); LYMPHOCYTES # (AUTO) 2.86 x10^3/uL (1-3.4); LYMPHOCYTES % (AUTO) 31 % (22-44); MD NO; MEAN CORPUSCULAR HEMOGLOBIN 29.1 pg (27.0-34.8); MEAN CORPUSCULAR HGB CONC 32.7 g/dL (32.4-35.8); MEAN CORPUSCULAR VOLUME 89.1 fL (80-100); MEAN PLATELET VOLUME 8.5 fL (7.4-10.4); MONOCYTES # (AUTO) 0.48 x10^3/uL (0.2-0.8); MONOCYTES % (AUTO) 5 % (2-9); NEUTROPHILS % (AUTO) 63 % (42-75); PLATELET COUNT 267 x10^3/uL (130-400); RED BLOOD COUNT 5.08 x10^6/uL (3.82-5.3); RED CELL DISTRIBUTION WIDTH 13.3 % (9.6-15.2)
[2020-04-03] MEDS: HYDROmorphone 1 MG/ML, 1ML INJ IVPush PRN ×2 (20:14→22:05)
[2020-04-03 20:23] LABS: ALBUMIN 3.9 g/dL (3.4-5.0); ANION GAP 6 mmol/L (5-15); CALCIUM 9.7 mg/dL (8.5-10.1); CHLORIDE 107 mmol/L (98-107)
[2020-04-03 20:27] LABS: INTERNATIONAL NORMALIZED RATIO 0.98 (0.93-1.1); PROTHROMBIN TIME 10.4 Seconds (9.6-11.5)
[2020-04-03 20:29] LABS: ALANINE AMINOTRANSFERASE 20 U/L (12-78); ALKALINE PHOSPHATASE 72 U/L (45-117); BILIRUBIN,TOTAL 0.3 mg/dL (0.2-1.0); CREATININE 0.81 mg/dL (0.55-1.02); TOTAL PROTEIN 8.1 g/dL (6.4-8.2)
[2020-04-03 20:32] LABS: MICROSCOPIC NOT IND
--- NOTE | 2020-04-03 20:59 | NUR ---
PT TO IMAGING.
--- NOTE | 2020-04-03 21:21 | NUR ---
EKG DONE FOR SUDDEN ONSET OF CP. NO OTHER S/SX. Addendum: 04/03/20 at 2123 by ALLAN PT STATES "I CAN'T GET A GOOD BREATH IN."
--- NOTE | 2020-04-03 21:31 | NUR ---
PT POSITIONING SELF FOR COMFORT IN BED, STATES CP IS SUBSIDING, PT STATES SHE'S HAD CP LIKE THIS BEFORE, BUT THIS TIME WAS WORSE.
[2020-04-03] MEDS ORDERED: OMNIPAQUE 350 MG/ML, 100ML BOTTLE ONE (21:32)
--- NOTE | 2020-04-03 22:04 | NUR ---
PT STATES CP AND SOB HAS RESOLVED. PT STATES "I'VE BEEN GETTING CP EVERY DAY FOR THE PAST 3 YEARS. MY NONDESTRUCTIVE TESTER SAID IT'S VASOSPASMS."
[2020-04-03 22:52] VITALS: BP 128/62
== END 2020-04-03 22:59 ==
LOC: ED 22:53
DX: R51 Headache (principal); R42 Dizziness and giddiness; R10.32 Left lower quadrant pain; R10.33 Periumbilical pain; G40.909 Epilepsy, unspecified, not intractable, without status epilepticus; G89.29 Other chronic pain; E03.9 Hypothyroidism, unspecified; Z95.0 Presence of cardiac pacemaker
CPT/HCPCS: 36415; 70496; 70498; 74177; 80053; 81003; 85025; 85610; 85730; 93005; 96374; 96375; 96376; 99285; J1170; J2405; Q9967

== ENCOUNTER 2020-04-20 13:30 | Outpatient (CLI) | payer OTHER ==
[2020-04-20] MEDS ORDERED: OMNIPAQUE 350 MG/ML, 100ML BOTTLE ONE (14:52)
== END 2020-04-20 23:59 | disposition home or self-care (01) ==
LOC: CFH 13:30
PROVIDERS: ATTEND Psychiatry & Neurology Neurology
DX: H93.13 Tinnitus, bilateral (principal)
CPT/HCPCS: 70470; Q9967

== ENCOUNTER → 2020-05-30 | Outpatient (CLI) | payer OTHER | END | disposition home or self-care (01) | LOC: RAD 09:40 | PROVIDERS: ATTEND Nurse Practitioner Family | DX: I82.491 Acute embolism and thrombosis of other specified deep vein of right lower extremity (principal); R13.10 Dysphagia, unspecified; R09.89 Other specified symptoms and signs involving the circulatory and respiratory systems | CPT/HCPCS: 74230; 93880 ==

== ENCOUNTER → 2020-06-13 | Outpatient (CLI) | payer OTHER | END | disposition home or self-care (01) | LOC: CFH 10:38 | PROVIDERS: ATTEND Internal Medicine | DX: M81.0 Age-related osteoporosis without current pathological fracture (principal); E03.9 Hypothyroidism, unspecified; Z90.710 Acquired absence of both cervix and uterus | CPT/HCPCS: 77080 ==

== ENCOUNTER 2020-10-30 09:55 | Emergency (ER) | payer MEDICAID, OTHER ==
[~2020-10-30] VITALS: Ht 152.4 cm; Wt 80.7 kg
[2020-10-30] MEDS ORDERED: HYDROmorphone 1 MG/ML, 1ML INJ ONE (10:27)
[2020-10-30] MEDS ORDERED: ONDANSETRON 2MG/ML, 2ML ONE (10:27)
[2020-10-30] MEDS ORDERED: ONDANSETRON 2MG/ML, 2ML IVPush ONE (10:30)
[2020-10-30] MEDS ORDERED: SODIUM CHLORIDE FLUSH 10ML SYR IVF ONE (10:30)
[2020-10-30] MEDS ORDERED: HYDROmorphone 2 MG/ML, 1ML IVPush PRN (10:30)
[2020-10-30 10:54] LABS: BASOPHILS % (AUTO) 0 % (0-1); EOSINOPHILS % (AUTO) 0 % (1-7); LYMPHOCYTES % (AUTO) 34 % (22-44); MEAN CORPUSCULAR HEMOGLOBIN 29.5 pg (27.0-34.8); MEAN CORPUSCULAR HGB CONC 33.3 g/dL (32.4-35.8); MEAN PLATELET VOLUME 8.5 fL (7.4-10.4); MONOCYTES % (AUTO) 6 % (2-9); NEUTROPHILS % (AUTO) 59 % (42-75); PLATELET COUNT 212 x10^3/uL (130-400); RED BLOOD COUNT 4.72 x10^6/uL (3.82-5.3); RED CELL DISTRIBUTION WIDTH 13.8 % (9.6-15.2)
[2020-10-30 10:57] LABS: MD NO
[2020-10-30 11:02] LABS: ALBUMIN 3.5 g/dL (3.4-5.0); ANION GAP 7 mmol/L (5-15); CHLORIDE 108 mmol/L (98-107)
[2020-10-30 11:07] LABS: ALANINE AMINOTRANSFERASE 17 U/L (12-78); ALKALINE PHOSPHATASE 63 U/L (45-117); BILIRUBIN,TOTAL 0.4 mg/dL (0.2-1.0); CREATININE 0.82 mg/dL (0.55-1.02); TOTAL PROTEIN 7.2 g/dL (6.4-8.2)
--- NOTE | 2020-10-30 11:25 | NUR ---
PT SBA TO [facility] THEN TO [facility] FOR [facility]. UA OBTAINED AND SENT TO LAB. FAMILY AT BEDSIDE.
[2020-10-30] MEDS ORDERED: OMNIPAQUE 350 MG/ML, 100ML BOTTLE ONE (11:30)
--- NOTE | 2020-10-30 12:05 | NUR ---
PT BACK FROM CT. NO NEEDS AT THIS TIME.
[2020-10-30 12:36] VITALS: BP 119/69
[2020-10-30 12:49] LABS: MICROSCOPIC INDICATED
== END 2020-10-30 14:07 | disposition home or self-care (01) ==
LOC: ED 10:23
DX: N39.0 Urinary tract infection, site not specified (principal); R10.9 Unspecified abdominal pain; E78.5 Hyperlipidemia, unspecified; E03.9 Hypothyroidism, unspecified; M81.0 Age-related osteoporosis without current pathological fracture; Z95.0 Presence of cardiac pacemaker; Z90.49 Acquired absence of other specified parts of digestive tract; Z90.710 Acquired absence of both cervix and uterus; Z88.5 Allergy status to narcotic agent; Z88.6 Allergy status to analgesic agent; Z88.8 Allergy status to other drugs, medicaments and biological substances
CPT/HCPCS: 36415; 74177; 80053; 81001; 85025; 87086; 96374; 96375; 99285; J1170; J2405; Q9967